=== PATIENT | female | born 1965 | race Caucasian/White ===

== ENCOUNTER 2016-10-21 17:38 | Emergency (ER) | payer MEDICAID ==
--- NOTE | 2016-10-21 18:40 | EDPHY ---
H & P Time Seen by Provider: 10/21/16 18:39 HPI/ROS: Chief complaint. Difficulty breathing HPI. 51-year-old female presents with complaint of 2 weeks of upper respiratory infection. She saw her physician and was prescribed Augmentin and prednisone. She is finished with the antibiotics but continues to have cough. She has weight or pressure on her chest. It pugh to breathe. She has had subjective fever. History of COPD. No unusual leg pain or swelling. No abdominal pain vomiting or diarrhea. ROS Constitutional. no fever/chills, no weakness Eyes. no problems with vision ENT. no sore throat, no nasal drainage Cardiovascular. Chest pressure Respiratory. Cough and shortness of breath Abdominal. no abdominal pain, no nausea/vomiting, no diarrhea . no problems urinating MS. no calf pain/swelling, no neck/back pain, no joint pain Skin. no rash Lymph. no swollen glands Neuro. no headache, no dizziness, no difficulty walking or with speech Past Medical/Surgical History: COPD, cholecystectomy, diabetes, obesity, pneumonia Social History: Single, daily smoker, no alcohol Smoking Status: Current every day smoker Physical Exam: General Appearance: Alert well-developed female mild distress vital signs stable Eyes: Pupils equal and round no pallor or injection. ENT, Mouth: Mucous membranes are moist. Respiratory: There are no retractions, lungs are clear to auscultation. Cardiovascular: Regular rate and rhythm. Gastrointestinal: Abdomen is soft and nontender, no masses, bowel sounds normal. Neurological: Awake and alert, sensory and motor exams grossly normal. Skin: Warm and dry, no rashes. Musculoskeletal: Neck is supple nontender. Extremities symmetrical, full range of motion. Psychiatric: Patient is oriented X 3, there is no agitation. Constitutional: Initial Vital Signs Temperature (C) 37 C 10/21/16 17:44 Heart Rate 88 10/21/16 17:44 Respiratory Rate 19 10/21/16 17:44 Blood Pressure 146/101 H 10/21/16 17:44 O2 Sat (%) 92 10/21/16 17:44 O2 Delivery Mode Room Air O2 (L/minute) 2 Allergies/Adverse Reactions: blueberry [Blueberry] Allergy (Severe, Verified 10/21/16 17:41) venom-honey bee [bee venom (honey bee)] Allergy (Unknown, Verified 10/21/16 17: 41) hydromorphone HCl [From Dilaudid] Allergy (Verified 10/21/16 17:41) Sulfa (Sulfonamide Antibiotics) Allergy (Verified 10/21/16 17:41) Home Medications: Medication Instructions Recorded Citalopram [celeXA 20 MG (RX)] 40 mg PO HS 05/13/12 Herbals/Supplements -Info Only 1 each PO AD 05/13/12 Lisinopril [Zestril 20 mg (*)] 20 mg PO DAILY 05/13/12 Albuterol [Proventil Inhaler HFA 2 puffs IH Q4 PRN 10/19/12 (*)] Montelukast Sodium [Singulair 10 10 mg PO DAILY 10/19/12 mg (*)] ARIPiprazole [Abilify 10 mg (*)] 15 mg PO DAILY 04/04/15 Atorvastatin Calcium [Lipitor 20 20 mg PO DAILY 04/04/15 mg (*)] Fluticasone Nasal [Flonase Nasal 1 sprays NASAL DAILY PRN 04/04/15 [place]] carBAMazepine [TEGretol (*)] 200 mg PO BID 04/04/15 metFORMIN HCL [Glucophage 850 mg 850 mg PO TIDMEAL 04/04/15 (*)] Baclofen [Baclofen 10 mg (*)] 10 mg PO TID PRN 01/19/16 Bisacodyl [Bisacodyl (*)] 5 mg PO PRN PRN 01/19/16 Esomeprazole Mag Trihydrate 40 mg PO DAILY 01/19/16 [Nexium] Furosemide [Lasix 40 MG (*)] 40 mg PO DAILY PRN 01/19/16 Glucosamine Sulfate [Glucosamine 500 mg PO BID 01/19/16 Sulfate 500 MG (*)] Insulin Detemir [Levemir Flextouch] 60 unit SQ DAILY 01/19/16 Magnesium Oxide [Magnesium Oxide 400 mg PO DAILY 01/19/16 400 mg (*)] Naproxen [Naprosyn] 500 mg PO BID PRN 01/19/16 Pregabalin [Lyrica 50mg (*)] 225 mg PO BID 01/19/16 Sumatriptan Succ/Naproxen Sod 1 each PO PRN PRN 01/19/16 [Treximet 85-500 mg Tablet] Tiotropium Inhaler [Spiriva 18 mcg IH DAILY 01/19/16 [place]] morphINE SR [Ms Contin/Oramorph 15 15 mg PO TID 01/19/16 mg (*)] oxyCODONE HCL/ACETAMINOPHEN 1 each PO Q4-6PRN PRN 01/19/16 [Percocet 10-325 mg Tablet] traZODone [traZODone 150MG (*)] 150 mg PO HS 01/19/16 Acetaminophen [Tylenol 325mg (*)] 650 mg PO Q4HRS PRN #0 tab 01/20/16 Benzocaine/Menthol 26/06 [Cepacol 1 ea PO PRN PRN #0 lozenge 01/20/16 Lozenge] Insulin Glargine [Lantus 100 10 units SC HS #0 ml 01/20/16 UNITS/ML (*)] Insulin Lispro [humALOG LISPRO 100 0 unit SC ACHS #0 unit 01/20/16 units/ml (*)] predniSONE 40 mg PO DAILY #1 tablet 01/20/16 Effexor Xr 10/21/16 [place] 10-325 Tablet 10/21/16 Medical Decision Making - Diagnostics EKG Interpretation: EKG interpreted by me shows normal sinus rhythm with normal interval. There is left axis deviation. QRS is normal there is no significant ST elevation or depression. No arrhythmia. The rate is 82 Imaging Results: Imaging Impressions Chest X-Ray 10/21/16 17:50 Impression: Diffuse bronchial wall thickening, similar to prior exam in 2016. Otherwise, no acute thoracic abnormality. Chest x-ray consistent with bronchitis but no evidence for pneumonia Procedures: IV normal saline monitor Cole johnson ED Course/Re-evaluation: Re-evaluation 8:00 p.m.--listening the patient's lungs better air movement. She feels much better. We will repeat a another albuterol updraft. Recheck again at 9:00 p.m.. Patient is stable much better breath sounds. She feels well and wants to go home. She and I discussed imaging and lab results. We discussed treatment plan including criteria for return importance of follow- up further evaluation. She expresses understanding and agreement Differential Diagnosis: This likely represents COPD exacerbation. I considered pneumonia as well as bronchitis - Data Points Laboratory Results: Laboratory Results 10/21/16 19:15 10/21/16 19:15 10/21/16 10/21/16 19:15 19:15 WBC 12.86 10^3/uL H 10^3/uL (3.80-9.50) RBC 5.80 10^6/uL H 10^6/uL (4.18-5.33) Hgb 17.0 g/dL H g/dL (12.6-16.3) Hct 50.9 % H % (38.0-47.0) MCV 87.8 fL fL (81.5-99.8) MCH 29.3 pg pg (27.9-34.1) MCHC 33.4 g/dL g/dL (32.4-36.7) RDW 14.6 % % (11.5-15.2) Plt Count 288 10^3/uL 10^3/uL (150-400) MPV 10.4 fL fL (8.7-11.7) Neut % (Auto) 58.9 % % (39.3-74.2) Lymph % (Auto) 30.2 % % (15.0-45.0) Hardy % (Auto) 7.2 % % (4.5-13.0) Eos % (Auto) 1.7 % % (0.6-7.6) Baso % (Auto) 1.1 % % (0.3-1.7) Nucleat RBC Rel Count 0.0 % % (0.0-0.2) Absolute Neuts (auto) 7.56 10^3/uL H 10^3/uL (1.70-6.50) Absolute Lymphs (auto) 3.89 10^3/uL H 10^3/uL (1.00-3.00) Absolute Monos (auto) 0.93 10^3/uL H 10^3/uL (0.30-0.80) Absolute Eos (auto) 0.22 10^3/uL 10^3/uL (0.03-0.40) Absolute Basos (auto) 0.14 10^3/uL H 10^3/uL (0.02-0.10) Absolute Nucleated RBC 0.00 10^3/uL 10^3/uL (0-0.01) Immature Gran % 0.9 % % (0.0-1.1) Immature Gran # 0.12 10^3/uL H 10^3/uL (0.00-0.10) Sodium 132 mEq/L L mEq/L (134-144) Potassium 5.5 mEq/L H mEq/L (3.5-5.2) Chloride 98 mEq/L mEq/L (97-110) Carbon Dioxide 24 mEq/l mEq/l (22-31) Anion Gap 10 mEq/L mEq/L (8-16) BUN 17 mg/dL mg/dL (7-23) Creatinine 0.6 mg/dL mg/dL (0.6-1.0) Estimated GFR > 60 Glucose 245 mg/dL H mg/dL (70-100) Calcium 9.2 mg/dL mg/dL (8.5-10.4) Troponin I 0.016 ng/mL ng/mL (0-0.034) Specimen Hemolysis 174 Medications Given: Discontinued Medications Albuterol (Proventil Neb) 3 ml IH EDNOW ONE Stop: 10/21/16 20:07 Last Admin: 10/21/16 20:18 Dose: 3 ml Albuterol/Ipratropium (Duoneb) 3 ml IH EDNOW ONE Stop: 10/21/16 19:02 Last Admin: 10/21/16 19:08 Dose: 3 ml Methylprednisolone Sodium Succinate (Solu-Medrol) 125 mg IVP EDNOW ONE Stop: 10/21/16 19:02 Last Admin: 10/21/16 19:16 Dose: 125 mg Departure - Departure Disposition: Home, Routine, Self-Care Clinical Impression: Chronic obstructive pulmonary disease with acute exacerbation Condition: Good Instructions: COPD (Chronic Obstructive Pulmonary Disease) (ED) Additional Instructions: Albuterol inhaler using 2 puffs every 2-4 hours as needed for breathing. Return for worsening symptoms. Recheck with Dr. Magda ARAMBULA today in 1-2 days if not continuing to improve Referrals: Александр Agarwal MD [Primary Care Provider] - 1 day, if not improved
[2016-10-21] MEDS ORDERED: IPRATROPIUM/ALBUTEROL 3 ML DEYVIAL IH ONE (19:01)
[2016-10-21] MEDS ORDERED: methylPREDNISolone SOD SUCC 125 MG/2 ML VIAL IVP ONE (19:01)
[2016-10-21 19:32] LABS: % IMMATURE GRANULYOCYTES 0.9 % (0.0-1.1); ABSOLUTE IMMATURE GRANULOCYTES 0.12 10^3/uL (0.00-0.10); ADD DIFF? NO; ADD MORPH? NO; ADD SCAN? NO; ATYPICAL LYMPHOCYTE FLAG 10 (0-99); FRAGMENT RBC FLAG 0 (0-99); HEMATOCRIT 50.9 % (38.0-47.0); LEFT SHIFT FLG 0 (0-99); LIPEMIA HEMOLYSIS FLAG 80 (0-99); MEAN CELL HEMOGLOBIN 29.3 pg (27.9-34.1); MEAN CELL HEMOGLOBIN CONCENTR. 33.4 g/dL (32.4-36.7); MEAN CELL VOLUME 87.8 fL (81.5-99.8); MEAN PLATELET VOLUME 10.4 fL (8.7-11.7); PLATELET CLUMPS FLAG 0 (0-99); PLATELET COUNT 288 10^3/uL (150-400); RED CELL DISTRIBUTION WIDTH 14.6 % (11.5-15.2)
--- NOTE | 2016-10-21 19:32 | CPEKG ---
Heart Rate: 82 RR Interval: 732 P-R Interval: 172 QRSD Interval: 86 QT Interval: 364 QTC Interval: 425 P Jeddo: 52 QRS Jeddo: -16 T Wave Jeddo: 70 EKG Severity - BORDERLINE ECG - EKG Impression: SINUS RHYTHM EKG Impression: BORDERLINE LEFT AXIS DEVIATION EKG Impression: CONSIDER ANTERIOR INFARCT Electronically Signed By: Huseyin Ortiz 21-Oct-2016 22:17:29
[2016-10-21 19:46] LABS: ANION GAP 10 mEq/L (8-16); CALCIUM 9.2 mg/dL (8.5-10.4); CARBON DIOXIDE 24 mEq/l (22-31); CHLORIDE 98 mEq/L (97-110); CREATININE 0.6 mg/dL (0.6-1.0); GLOMERULAR FILTRATION RATE > 60; GLUCOSE 245 mg/dL (70-100); POTASSIUM 5.5 mEq/L (3.5-5.2); SODIUM 132 mEq/L (134-144); SPECIMEN HEMOLYSIS 174
[2016-10-21 19:58] LABS: TROPONIN I 0.016 ng/mL (0-0.034)
[2016-10-21] MEDS ORDERED: ALBUTEROL 3 ML DEYVIAL IH ONE (20:06)
[2016-10-21 21:17] VITALS: BP 135/77; PULSE 84; RESP 18; TEMP 97.9; O2SAT 96
[2016-10-21] MEDS ORDERED: ALBUTEROL INH PREPACK MDI TAKEHOME ONE (21:23)
== END 2016-10-21 21:34 | disposition home or self-care (01) ==
DX: J44.1 Chronic obstructive pulmonary disease with (acute) exacerbation (principal); E11.9 Type 2 diabetes mellitus without complications; F17.200 Nicotine dependence, unspecified, uncomplicated; Z79.4 Long term (current) use of insulin
CPT/HCPCS: 96374

== ENCOUNTER 2016-11-07 00:29 | Emergency (ER) | payer MEDICAID ==
[2016-11-07] MEDS ORDERED: HALOPERIDOL LACT 5 MG/ML INJ IVP ONE (00:59)
[2016-11-07] MEDS ORDERED: KETOROLAC 15 MG/1 ML SDV IVP/IM ONE (00:59)
[2016-11-07] MEDS ORDERED: DEXAMETHASONE 4 MG/ML VIAL IVP ONE (00:59)
[2016-11-07] MEDS ORDERED: SUMAtriptan 6 MG/0.5 ML VIAL SC ONE (00:59)
[2016-11-07] MEDS ORDERED: METOCLOPRAMIDE 10 MG/2 ML VIAL IVP ONE (00:59)
[2016-11-07] MEDS ORDERED: NS 1,000 ML IV ONE (01:01)
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
[2016-11-07] MEDS ORDERED: DEXAMETHASONE 4 MG/ML VIAL ONE (01:33)
[2016-11-07 03:36] VITALS: BP 113/74; PULSE 84; RESP 18; TEMP 99.3; O2SAT 92
== END 2016-11-07 03:35 | disposition home or self-care (01) ==
DX: G43.909 Migraine, unspecified, not intractable, without status migrainosus (principal); E86.9 Volume depletion, unspecified; E11.9 Type 2 diabetes mellitus without complications; J44.9 Chronic obstructive pulmonary disease, unspecified; F17.200 Nicotine dependence, unspecified, uncomplicated; Z79.4 Long term (current) use of insulin; Z79.84 Long term (current) use of oral hypoglycemic drugs
CPT/HCPCS: 96374; J1100; J1885; J2765; J3030